=== PATIENT | female | born 1980 | race American Indian/Alaskan Native ===

== ENCOUNTER 2018-04-30 18:04 | Emergency (ER) | payer SELFPAY ==
--- NOTE | 2018-04-30 18:33 | Emergency Department Report ---
Blank Doc - Documentation Documentation: This is a 37-year-old female that presents with midsternum chest pain. Denies any SOB. Currently denies any chest pain. Stated it resolved. Stated it started when driving and started with body feeling warm. Stated mouth started to be dry. Denies any radiation of pain. Denies any URI symptoms. Denies any other complaints. PMH: None This initial assessment diagnostic orders/clinical plan/treatment(s) is/are subject to change based on patient's health status, clinical progression and re- assessment by fellow clinical providers in the ED. Further treatment and workup at subsequent clinical providers discretion. Patient/guardians urged not to elope from ED s their condition may be serious if not clinically assessed and managed. Initial orders include: 1-Patient sent to [facility] for further evaluation and treatment 2- Labs 3- EKG 4- CXR
[2018-04-30 18:59] LABS: Basophils % (Auto) 0.5 % (0.0-1.8); Eosinophils # (Auto) 0.1 K/mm3 (0.0-0.4); Eosinophils % (Auto) 2.1 % (0.0-4.3); Hematocrit 38.7 % (30.3-42.9); Hemoglobin 12.5 gm/dl (10.1-14.3); Lymphocytes # (Auto) 1.3 K/mm3 (1.2-5.4); Lymphocytes % (Auto) 20.9 % (13.4-35.0); Mean Corpuscular HGB Conc 32 % (30-34); Mean Corpuscular Volume 84 fl (79-97); Monocytes # (Auto) 0.5 K/mm3 (0.0-0.8); Monocytes % (Auto) 8.2 % (0.0-7.3); Platelet Count 324 K/mm3 (140-440); Red Cell Distribution Width 14.9 % (13.2-15.2)
[2018-04-30 19:06] LABS: INR 0.89 (0.87-1.13)
[2018-04-30 19:24] LABS: Alanine Aminotransferase 9 units/L (7-56); Albumin 4.4 g/dL (3.9-5); BUN/Creatinine Ratio 10; Blood Urea Nitrogen 7 mg/dL (7-17); Calcium 9.2 mg/dL (8.4-10.2); Hemolysis Index 7
--- NOTE | 2018-04-30 20:04 | XRay Report ---
FINAL REPORT EXAM: XR CHEST ROUTINE 2V HISTORY: Chest Pain TECHNIQUE: Two view chest PA and lateral PRIORS: None. FINDINGS: Cardiac and mediastinal contours are unremarkable. No focal pulmonary infiltrate is identified. No pleural fluid collection seen. Pulmonary vasculature is unremarkable. IMPRESSION: Negative two-view chest
--- NOTE | 2018-04-30 22:58 | Emergency Department Report ---
ED Chest Pain HPI - General Chief Complaint: Chest Pain Stated Complaint: CHEST PAIN Time Seen by Provider: 04/30/18 18:30 Source: patient, RN notes reviewed Mode of arrival: Ambulatory Limitations: No Limitations - History of Present Illness Initial Comments: This is a 37-year-old female who is not known to this provider previously. The patient reports that she is not . She does not have a primary care doctor, and she does not have chronic medical conditions. She does not take oral contraceptives, and does not smoke. The patient denies DVT, pulmonary embolus risk factors. She presents to the emergency room with a sensation of resolved chest pressure, and palpitations. This started at 4:00 this afternoon, and lasted for one half hour. There is no vomiting, diaphoresis or shortness of breath. She reports that she "felt funny." All of her symptoms have now resolved. It did not radiate anywhere, and did not have exacerbating or relieving factors. MD Complaint: other -: Sudden Onset: other (patient patient was driving, now resolved) Pain Location: other (central chest, left chest, right chest) Pain Radiation: none Severity scale (0 -10): 0 Improves With: nothing Worsens With: nothing Aspirin use within the Past 7 Days: (0) No - Related Data On Oral Contraceptives: No Previous Rx's Medication Instructions Recorded Last Taken Type Aspirin [Aspirin BABY CHEW TAB] 81 mg PO QDAY #30 tab.chew 05/01/18 Unknown Rx Famotidine [Pepcid] 20 mg PO QDAY #30 tablet 05/01/18 Unknown Rx Allergies Allergy/AdvReac Type Severity Reaction Status Date / Time No Known Allergies Allergy Unverified 04/30/18 18:34 Heart Score - HEART Score History: Slightly suspicious EKG: Normal Age: < 45 Risk factors: No known risk factors Troponin: < normal limit HEART Score: 0 - Critical Actions Critical Actions: 0-3 pts:0.9-1.7%risk of adverse cardiac event.Candidate for discharge ED Review of Systems ROS: Stated complaint: CHEST PAIN Other details as noted in HPI Constitutional: denies: fever Eyes: denies: vision change ENT: denies: epistaxis Respiratory: denies: wheezing Cardiovascular: palpitations, other Gastrointestinal: denies: vomiting Musculoskeletal: denies: back pain Neurological: weakness Psychiatric: anxiety ED Past Medical Hx - Past Medical History Previous Medical History?: No - Surgical History Past Surgical History?: No - Social History Smoking Status: Never Smoker Substance Use Type: None - Medications Home Medications: Home Medications Medication Instructions Recorded Confirmed Last Taken Type Aspirin [Aspirin BABY CHEW TAB] 81 mg PO QDAY #30 tab.chew 05/01/18 Unknown Rx Famotidine [Pepcid] 20 mg PO QDAY #30 tablet 05/01/18 Unknown Rx ED Physical Exam - General Limitations: No Limitations General appearance: alert, in no apparent distress - Head Head exam: Present: atraumatic, normocephalic - Eye Eye exam: Present: normal appearance, EOMI. Absent: nystagmus - ENT ENT exam: Present: normal exam, normal orophraynx, mucous membranes moist, normal external ear exam - Neck Neck exam: Present: normal inspection, full ROM. Absent: tenderness, meningismus - Respiratory Respiratory exam: Present: normal lung sounds bilaterally. Absent: respiratory distress - Cardiovascular Cardiovascular Exam: Present: regular rate, normal rhythm, normal heart sounds. Absent: bradycardia, tachycardia, irregular rhythm, systolic murmur, diastolic murmur, rubs, gallop - GI/Abdominal GI/Abdominal exam: Present: soft. Absent: distended, tenderness, guarding, rebound, rigid, pulsatile mass - Extremities Exam Extremities exam: Present: normal inspection, full ROM, other (2+ pulses noted in the bilateral upper, lower extremities. Compartments soft. No long bony tenderness. The pelvis is stable.). Absent: pedal edema, joint swelling, calf tenderness - Back Exam Back exam: Present: normal inspection - Neurological Exam Neurological exam: Present: alert (there is no pass pointing. There is normal sulo-jz-bago. There is negative pronator drift. Negative Romberg examination. Walks with a normal gait.), CN II-XII intact, normal gait, other (Extraocular movements intact. Tongue midline. No facial droop. Facial sensation intact to light touch in the V1, V2, V3 distribution bilaterally. 5 and 5 strength in 4 extremities.. Sensation is intact to light touch in 4 extremities.). Absent: motor sensory deficit - Psychiatric Psychiatric exam: Present: normal affect, normal mood, anxious - Skin Skin exam: Present: warm, dry, intact, normal color. Absent: rash ED Course Vital Signs 04/30/18 04/30/18 18:32 23:29 Temperature 97.4 F L 98.3 F Pulse Rate 103 H 95 H Respiratory 18 16 Rate Blood Pressure 147/81 Blood Pressure 123/76 [Left] O2 Sat by Pulse 100 100 Oximetry - Reevaluation(s) Reevaluation #1: 04/30/18 23:24 Differential diagnosis, including not limited to: GERD, gastritis, costochondritis, hiatal hernia, anxiety, acute coronary syndrome Assessment and plan: 37-year-old female with resolved chest discomfort, low risk by well's criteria, resolved tachycardia, not hypoxic, with no pulmonary embolus or DVT risk factors, low risk by the RICHARD score, low risk by the heart score. EKG unchanged 2. Troponin negative 2. Patient at low risk for major adverse cardiac event. Patient resting comfortable, and in no acute distress. The patient is medically suitable to follow up with outpatient primary care doctor or director religious education to complete her outpatient cardiology risk stratification. Discussed this with patient and mother, who verbalized unde rstanding. Reevaluation #2: 04/30/18 23:59 Patient denies aspirin use, cocaine use, DVT, pulmonary embolus risk factors. She reports there is no family history of ischemic heart disease. She and her mother corroborates there is no history of DVT or pulmonary embolus in the family. Troponin negative 2. Tachycardia resolved. Patient counseled to follow up in outpatient director religious education. Reevaluation #3: 05/01/18 00:05 After being informed of discharge, patient endorses additional complaint of intermittent left-sided facial numbness/paresthesia/dysesthesia, intermittent lower extremity numbness, and nontraumatic right paraspinal back pain. She reports the symptoms have been present for months. The patient has a Mckittrick Coma Scale of 15, with an NIH score of 0. She has no neurologic deficits on my examination, she is counseled to follow-up in outpatient primary care doctor or neurologist within the next month for her nonspecific sensory symptoms. Her back pain is not present currently, she has a normal neurologic examination, no pulsatile abdominal mass, and no midline spinal tenderness. Her back discomfort does not appear to represent an acute medical condition at this time, especially given that it has been present for months, and she is counseled to follow up with an outpatient primary care doctor, rest and avoid heavy lifting, and to take acetaminophen as needed for pain. RICHARD score - Richard Score Age > 65: (0) No Aspirin use within the Past 7 Days: (0) No 3 or more CAD Risk Factors: (0) No 2 or more Angina events in past 24 hrs: (0) No Known CAD with more than 50% Stenosis: (0) No Elevated Cardiac Markers: (0) No ST Deviation Greater than 0.5mm: (0) No RICHARD Score: 0 ED Medical Decision Making - Lab Data Result diagrams: 04/30/18 18:42 04/30/18 18:42 Vital Signs 04/30/18 18:32 Temperature 97.4 F L Pulse Rate 103 H Respiratory 18 Rate Blood Pressure 147/81 O2 Sat by Pulse 100 Oximetry Lab Results 04/30/18 04/30/18 04/30/18 Range/Units 18:42 18:42 18:42 WBC 6.4 (4.5-11.0) K/mm3 RBC 4.60 (3.65-5.03) M/mm3 Hgb 12.5 (10.1-14.3) gm/dl Hct 38.7 (30.3-42.9) % MCV 84 (79-97) fl MCH 27 L (28-32) pg MCHC 32 (30-34) % RDW 14.9 (13.2-15.2) % Plt Count 324 (140-440) K/mm3 Lymph % (Auto) 20.9 (13.4-35.0) % [place] % (Auto) 8.2 H (0.0-7.3) % Eos % (Auto) 2.1 (0.0-4.3) % Baso % (Auto) 0.5 (0.0-1.8) % Lymph # 1.3 (1.2-5.4) K/mm3 [place] # 0.5 (0.0-0.8) K/mm3 Eos # 0.1 (0.0-0.4) K/mm3 Baso # 0.0 (0.0-0.1) K/mm3 Seg Neutrophils % 68.3 (40.0-70.0) % Seg Neutrophils # 4.3 (1.8-7.7) K/mm3 PT 12.6 (12.2-14.9) Sec. INR 0.89 (0.87-1.13) APTT 29.0 (24.2-36.6) Sec. Sodium 142 (137-145) mmol/L Potassium 4.3 (3.6-5.0) mmol/L Chloride 105.2 (98-107) mmol/L Carbon Dioxide 25 (22-30) mmol/L Anion Gap 16 mmol/L BUN 7 (7-17) mg/dL Creatinine 0.7 (0.7-1.2) mg/dL Estimated GFR > 60 ml/min BUN/Creatinine Ratio 10 % Glucose 100 (65-100) mg/dL Calcium 9.2 (8.4-10.2) mg/dL Total Bilirubin 0.20 (0.1-1.2) mg/dL AST 19 (5-40) units/L ALT 9 (7-56) units/L Alkaline Phosphatase 56 (35-129) units/L Troponin T < 0.010 (0.00-0.029) ng/mL Total Protein 7.5 (6.3-8.2) g/dL Albumin 4.4 (3.9-5) g/dL Albumin/Globulin Ratio 1.4 % HCG, Qual (Negative) 04/30/18 04/30/18 Range/Units 18:42 21:52 WBC (4.5-11.0) K/mm3 RBC (3.65-5.03) M/mm3 Hgb (10.1-14.3) gm/dl Hct (30.3-42.9) % MCV (79-97) fl MCH (28-32) pg MCHC (30-34) % RDW (13.2-15.2) % Plt Count (140-440) K/mm3 Lymph % (Auto) (13.4-35.0) % [place] % (Auto) (0.0-7.3) % Eos % (Auto) (0.0-4.3) % Baso % (Auto) (0.0-1.8) % Lymph # (1.2-5.4) K/mm3 [place] # (0.0-0.8) K/mm3 Eos # (0.0-0.4) K/mm3 Baso # (0.0-0.1) K/mm3 Seg Neutrophils % (40.0-70.0) % Seg Neutrophils # (1.8-7.7) K/mm3 PT (12.2-14.9) Sec. INR (0.87-1.13) APTT (24.2-36.6) Sec. Sodium (137-145) mmol/L Potassium (3.6-5.0) mmol/L Chloride (98-107) mmol/L Carbon Dioxide (22-30) mmol/L Anion Gap mmol/L BUN (7-17) mg/dL Creatinine (0.7-1.2) mg/dL Estimated GFR ml/min BUN/Creatinine Ratio % Glucose (65-100) mg/dL Calcium (8.4-10.2) mg/dL Total Bilirubin (0.1-1.2) mg/dL AST (5-40) units/L ALT (7-56) units/L Alkaline Phosphatase (35-129) units/L Troponin T < 0.010 (0.00-0.029) ng/mL Total Protein (6.3-8.2) g/dL Albumin (3.9-5) g/dL Albumin/Globulin Ratio % HCG, Qual Negative (Negative) - EKG Data -: EKG Interpreted by [place] EKG shows normal: sinus rhythm Rate: normal - EKG Data When compared to previous EKG there are: previous EKG unavailable 04/30/18 23:24 EKG #1 demonstrated sinus tachycardia, 116 bpm, normal axis, QTC 444 ms, not consistent with ST elevation myocardial infarction, poor R-wave progression. EKG #2 appears to be unchanged. Tachycardia has resolved. - Radiology Data Radiology results: report reviewed, image reviewed X-ray the chest is negative for acute disease. Critical care attestation.: If time is entered above; I have spent that time in minutes in the direct care of this critically ill patient, excluding procedure time. ED Disposition Clinical Impression: History of chest pain Disposition: DC-01 TO HOME OR SELFCARE Is pt being admited?: No Does the pt Need Aspirin: No Condition: Stable Instructions: Chest Pain (ED) Additional Instructions: Follow-up with a director religious education within the next 3-5 days. Avoid consumption of Motrin, ibuprofen, Naprosyn, Aleve. Take medications as needed/directed. Return to the emergency room right away with new, worsening or different symptoms. Prescriptions: Aspirin [Aspirin BABY CHEW TAB] 81 mg PO QDAY #30 tab.chew Famotidine [Pepcid] 20 mg PO QDAY #30 tablet Referrals: [facility] [Provider Group] - 3-5 Days [facility] [Provider Group] - 3-5 Days
[2018-04-30 23:32] VITALS: BP 123/76
== END 2018-05-01 00:05 | disposition home or self-care (01) ==
LOC: ED 18:04
DX: R07.89 Other chest pain (principal)
CPT/HCPCS: 36415; 71046; 80053; 84484; 84703; 85025; 85610; 85730; 93005; 93010